=== PATIENT | female | born 1955 | race Caucasian/White ===

== ENCOUNTER 2024-06-24 03:06 | Emergency (ER) | payer MEDICARE ==
[~2024-06-24] VITALS: Ht 172.7 cm; Wt 75.0 kg
[2024-06-24] MEDS ORDERED: LIPITOR10 MG PO (03:19)
[2024-06-24 03:21] LABS: BASOPHILS 0.1 % (0-2); EOSINOPHILS 0.4 % (0-6); HEMATOCRIT 36.4 % (35.0-50.0); HEMOGLOBIN 12.9 g/dL (12.0-18.0); LYMPHOCYTES 5.9 % (24-44); MCH 32.5 (27-36); MCHC 35.3 g/dl (30-36); MONOCYTES 4.2 % (0-12); NEUTROPHILS 89.4 % (39-80); PLATELET COUNT 236 K/uL (140-440); RBC 3.96 M/ul (4.3-5.7); RDW 12.9 (10.5-15.0)
[2024-06-24 03:34] LABS: ALBUMIN/GLOBULIN RATIO 1.21 (1.1-2.4); ANION GAP 18.3 (7-21); BILIRUBIN, TOTAL 0.6 mg/dL (0.2-1.0); BUN/CREATININE RATIO 17.82 (6.0-28.6); CALCIUM 9.2 mg/dL (8.5-10.1); CREATININE, SERUM 1.01 mg/dL (0.55-1.02); MAGNESIUM 1.6 mg/dL (1.8-2.4); POTASSIUM 3.3 mmol/L (3.5-5.1); PROTEIN, TOTAL 7.3 g/dL (6.4-8.2)
[2024-06-24] MEDS ORDERED: FAMOTIDINE 20 MG/ 2 ML VIAL IV ONE (03:45)
[2024-06-24] MEDS ORDERED: LACTATED RINGER'S 1,000 ML IV ONE (03:45)
[2024-06-24] MEDS ORDERED: MAGNESIUM OXIDE 400 MG TABLET PO ONE (04:00)
[2024-06-24 04:58] LABS: BILIRUBIN, URINE NEGATIVE (negative); BLOOD/HGB, URINE TRACE-I (Negative); KETONE, URINE SMALL (Negative); LEUK ESTERASE, URINE NEGATIVE (negative); NITRITE, URINE NEGATIVE (negative); PH, URINE 7.5 (5-7)
[2024-06-24] MEDS ORDERED: ONDANSETRON 4 MG HOME.PACK SL ONE (05:00)
[2024-06-24] MEDS ORDERED: ONDANSETRON ODT4 MG PO (05:02)
[2024-06-24 05:04] LABS: WHITE BLOOD CELLS, URINE 0-1 /HPF (0-5)
[2024-06-24 05:05] LABS: BACTERIA, URINE 1+ /hpf (negative); CASTS, URINE NONE SEEN \\lpf; CRYSTALS, URINE NONE SEEN (0-1+); EPITHELIAL CELLS, URINE SQUAMOUS 1+ /lpf (0-1+); REFLEX CULTURE, URINE No (No)
[2024-06-24 05:22] VITALS: BP 153/70
== END 2024-06-24 05:20 | disposition home or self-care (01) ==
LOC: ED 03:06
PROVIDERS: Internal Medicine
DX: A08.4 Viral intestinal infection, unspecified (principal); E86.0 Dehydration; E87.6 Hypokalemia; E83.42 Hypomagnesemia; Z90.49 Acquired absence of other specified parts of digestive tract; Z79.899 Other long term (current) drug therapy
CPT/HCPCS: 36415; 80053; 81001; 83036; 83735; 84484; 85025; 96374; 99284-25; A9270; J7121